=== PATIENT | female | born 1955 | race Caucasian/White ===

== ENCOUNTER 2017-09-04 13:37 | Emergency (ER) | payer OTHER ==
[~2017-09-04] VITALS: Ht 157.5 cm; Wt 76.5 kg
[2017-09-04] MEDS ORDERED: LORTAB 5-325 M1 EACH PO (15:17)
[2017-09-04] MEDS ORDERED: NAPROSYN500 MG PO (15:17)
[2017-09-04] MEDS ORDERED: FLEXERIL10 MG PO (15:17)
[2017-09-04 15:49] VITALS: BP 164/86
== END 2017-09-04 15:50 | disposition home or self-care (01) ==
LOC: EME 13:37
DX: S20.219A Contusion of unspecified front wall of thorax, initial encounter (principal); I10 Essential (primary) hypertension; V43.52XA Car driver injured in collision with other type car in traffic accident, initial encounter; Y92.488 Other paved roadways as the place of occurrence of the external cause; E11.9 Type 2 diabetes mellitus without complications; Z88.5 Allergy status to narcotic agent; Z87.891 Personal history of nicotine dependence
CPT/HCPCS: 70450; 71020; 99281; 99283; J1885

== ENCOUNTER 2017-10-09 09:11 | Emergency (ER) | payer OTHER ==
[~2017-10-09] VITALS: Ht 157.5 cm; Wt 81.4 kg
[~2017-10-09 09:11] MED LIST: FLEXERIL10 MG PO; LORTAB 5-325 M1 EACH PO; NAPROSYN500 MG PO
[2017-10-09 09:51] LABS: HEMATOCRIT 38.5 % (36.0-46.0); HEMOGLOBIN 13.6 G/DL (11.9-15.5); MCH 31.7 PG (29.0-34.0); MCHC 35.3 G/DL (30.0-36.0); MCV 89.7 FL (83-99); PLATELET COUNT 199 K/uL (156-360); RBC DIS.WIDTH-CV 12.6 % (11.8-14.6); RBC DIS.WIDTH-SD 41.2 % (39-53); RED BLOOD COUNT 4.29 M/uL (3.80-5.20); WHITE BLOOD COUNT 8.9 K/uL (4.1-10.2)
[2017-10-09 10:01] LABS: CHLORIDE 104 mEq/L (99-109); POTASSIUM 4.3 mEq/L (3.7-5.4); SODIUM 140 mEq/L (136-147)
[2017-10-09 10:03] LABS: GLUCOSE 157 mg/dL (70-99)
[2017-10-09 10:07] LABS: CREATININE 0.7 mg/dL (0.6-1.3); GFR ESTIMATE (CALCULATED) > 59 mL/min/
[2017-10-09 10:08] LABS: UREA NITROGEN (BUN) 10 mg/dL (9-23)
[2017-10-09 15:06] VITALS: BP 145/85
== END 2017-10-09 15:07 | disposition home or self-care (01) ==
LOC: EME 09:11
DX: H43.391 Other vitreous opacities, right eye (principal)
CPT/HCPCS: 70450; 71020; 80048; 85027; 93005; 99281; 99283